=== PATIENT | female | born 1965 | race Caucasian/White ===

== ENCOUNTER 2017-09-11 06:03 | Day surgery (SDC) | payer BC ==
[~2017-09-11 06:03] MED LIST: ACETAMINOPHEN 1,000 MG/100 ML BTL IV ONE
[2017-09-11] MEDS ORDERED: HYDROCODONE/APAP 7.5/325MG TABLET PO ONE (13:04)
--- NOTE | 2017-09-11 13:20 | Operative Note ---
DATE OF SURGERY: 09/11/2017 Surgeon: Simon Leblanc DO Referring physician: Андрей Escobar DO PREOPERATIVE DIAGNOSIS: Carpal tunnel syndrome of the left wrist. POSTOPERATIVE DIAGNOSIS: Carpal tunnel syndrome of the left wrist. OPERATION: Decompression of left median nerve of the wrist using 3.5 loupe magnification. PROCEDURE: This 52-year-old female was taken to the operating room and placed in the supine position on the operating room table. General anesthesia was induced. The left upper extremity was elevated, prepped with Hibiclens and draped in the usual sterile fashion, exsanguinated, and the tourniquet inflated to 250 mmHg. A palmar incision was utilized following the hypothenar crease from the level of the base of the web space of the thumb to the flexor crease of the wrist and dissection was carried down through the skin and subcutaneous tissue. Hemostasis obtained with the electrocautery. The palmar fascia was divided in line with the skin incision to expose the flexor retinaculum. This was punctured, split to its proximal margin, and then with the contents of the carpal tunnel under direct vision, the transverse carpal ligament was transected along its ulnar border and the radial flap was raised to expose the entire median nerve under the transverse carpal ligament. The recurrent motor branch of the median nerve was identified and found to be normal. The patient did have marked hyperemia of the median nerve, a mild hourglass deformity was also identified. The wound was copiously irrigated with lactated Ringer's solution and the tourniquet released and hemostasis obtained with the electrocautery. The wound closed with interrupted 6-0 nylon suture. Sterile dressings with plaster splint immobilization was applied with the wrist in slight dorsiflexion and the thumb in an adducted position. The patient was then taken to the recovery room in satisfactory condition. KARIME
[2017-09-11] MEDS ORDERED: ONDANSETRON HCL IV 4 MG/2 ML VIAL IVP ONE (14:00)
[2017-09-11] MEDS ORDERED: METOCLOPRAMIDE HCL 10 MG/2 ML VIAL IVP ONE (14:00)
[2017-09-11] MEDS ORDERED: DEXAMETHASONE 4 MG/ML 1ML VIAL IVP ONE (14:00)
[2017-09-11] MEDS ORDERED: PROPOFOL 10 MG/ML VIAL IV ONE (14:00)
[2017-09-11] MEDS ORDERED: SEVOFLURANE 250 ML INH ONE (14:00)
[2017-09-11] MEDS ORDERED: FENTANYL PF 100MCG/2ML VIAL IV ONE (14:00)
[2017-09-11] MEDS ORDERED: LIDOCAINE 2% MDV (20MG/ML) 20ML VIAL IV ONE (14:00)
== END 2017-09-11 08:10 | disposition home or self-care (01) ==
LOC: SUR 06:03
PROVIDERS: ATTEND Orthopaedic Surgery
DX: G56.02 Carpal tunnel syndrome, left upper limb (principal)
CPT/HCPCS: 81025; 64721; 01810; J2405; J3010; J2765